=== PATIENT | female | born 1965 | race Hispanic/Latino ===

== ENCOUNTER 2024-07-26 12:12 | Emergency (ER) | payer BC, OTHER ==
--- OUTSIDE RECORDS SUMMARY | 2024-07-26 12:16 | XMS REPORT | Continuity of Care Document ---
Author Name Unknown Address [address] [place] [address] [facility] Address [address] [place] [address] Care Team Providers Care [place] Name Role Phone GC_CPC_WalkInSchedul Attending Clinician Unavail able GC_CPCN_Walk-In Attending Clinician Unavailable Franky Gutierrez Attending Clinician [phone] [facility]_WalkInSchedul Admitting Clinician Unavail able GC_CPCN_Walk-In Admitting Clinician Unavailable Payers Payer Name Policy Type Policy Number Effective Date Expirati on Date Source [facility]MERLY [facility] [id number] 2015 00:00:00 Problems Condition Name Condition Details Condition Category Status Onset Date Resolution Date Last Treatment Date Treating Clinician Comments Source Urine finding Urine Finding Problem Active 3-29 00:00: 00 [facility] Gastroesop hageal reflux disease without esophagiti s Gastroesop hageal Reflux Disease without Esophagiti s Problem Active 6-17 00:00: 00 [facility] Type 2 diabetes mellitus Type 2 Diabetes Mellitus Problem Active 2020-03 0- 00:00: 00 [facility] Hyperlipid emia Hyperlipid emia Problem Active 2020-03 0- 00:00: 00 [facility] Essential hypertensi on Essential Hypertensi on Problem Active 2020-03 0- 00:00: 00 [facility] Social History Smoking Status Start Date Stop Date Source Never Smoker [facility] Medications Ordered Medication Name Filled Medication Name Start Date Stop Date Current Medication? Ordering Clinician Indication Dosage Frequency Signature (SIG) Comments Components Source amlodipine 5 mg tablet Take 1 tablet every day by oral route. amlodipine 5 mg tablet Take 1 tablet every day by oral route. No 1 Q1D amlodipine 5 mg tablet Take 1 tablet every day by oral route. [facility] atorvastati n 20 mg tablet Take 1 tablet every day by oral route at dinner. atorvastati n 20 mg tablet Take 1 tablet every day by oral route at dinner. No 1 Q1D atorvastat in 20 mg tablet Take 1 tablet every day by oral route at dinner. [facility] candesartan 32 mg tablet Take 1 tablet every day by oral route. candesartan 32 mg tablet Take 1 tablet every day by oral route. No 1 Q1D candesarta n 32 mg tablet Take 1 tablet every day by oral route. [facility] omeprazole 40 mg capsule,del ayed release 1 cap po 30 min before breakfast omeprazole 40 mg capsule,del ayed release 1 cap po 30 min before breakfast No omeprazole 40 mg capsule,de layed release 1 cap po 30 min before breakfast [facility] Synjardy XR 5 mg-1,000 mg tablet, extended release Take 1 tablet twice a day by oral route. Synjardy XR 5 mg-1,000 mg tablet, extended release Take 1 tablet twice a day by oral route. No 1 BID Synjardy XR 5 mg-1,000 mg tablet, extended release Take 1 tablet twice a day by oral route. [facility] Immunizations Ordered Immunization Name Filled Immunization Name Date Status Comments Source COVID-19, mRNA, LNP-S, PF, 30 mcg/0.3 mL dose ([employer]) COVID-19, mRNA, LNP-S, PF, 30 mcg/0.3 mL dose ([employer]) Unknown Completed [facility] influenza, seasonal, injectable, preservative free influenza, seasonal, injectable, preservative free Unknown Completed [facility] Vital Signs Vital Name Observation Time Observation Value Comments S ource BMI (Body Mass Index) 2024-06-24 00:00:00 34.9 kg/m2 [facility] BP Systolic 2024-06-24 00:00:00 122 mm[Hg] [facility] Height 2024-06-24 00:00:00 63 [in_i] [facility] BP Diastolic 2024-06-24 00:00:00 85 mm[Hg] [facility] Body Weight 2024-06-24 00:00:00 3152 [oz_av] [facility] BMI (Body Mass Index) 2024-06-06 00:00:00 35.8 kg/m2 [facility] BP Systolic 2024-06-06 00:00:00 138 mm[Hg] [facility] BP Diastolic 2024-06-06 00:00:00 92 mm[Hg] [facility] Body Weight 2024-06-06 00:00:00 3232 [oz_av] [facility] Height 2024-06-06 00:00:00 63 [in_i] [facility] Height 2024-04-18 00:00:00 63 [in_i] [facility] Body Weight 2024-04-18 00:00:00 3376 [oz_av] [facility] BP Systolic 2024-04-18 00:00:00 136 mm[Hg] [facility] BMI (Body Mass Index) 2024-04-18 00:00:00 37.4 kg/m2 [facility] BP Diastolic 2024-04-18 00:00:00 96 mm[Hg] [facility] BMI (Body Mass Index) 2023-10-12 00:00:00 37.9 kg/m2 [facility] Body Weight 2023-10-12 00:00:00 3427.2 [oz_av] [facility] BP Diastolic 2023-10-12 00:00:00 106 mm[Hg] [facility] BP Systolic 2023-10-12 00:00:00 155 mm[Hg] [facility] Height 2023-10-12 00:00:00 63 [in_i] [facility] BP Diastolic 2022-04-06 00:00:00 90 mm[Hg] [facility] Height 2022-04-06 00:00:00 63 [in_i] [facility] BMI (Body Mass Index) 2022-04-06 00:00:00 36.1 kg/m2 [facility] BP Systolic 2022-04-06 00:00:00 152 mm[Hg] [facility] Body Weight 2022-04-06 00:00:00 3264 [oz_av] [facility] BP Diastolic 2021-09-25 00:00:00 102 mm[Hg] [facility] Height 2021-09-25 00:00:00 63 [in_i] [facility] BMI (Body Mass Index) 2021-09-25 00:00:00 36.7 kg/m2 [facility] BP Systolic 2021-09-25 00:00:00 163 mm[Hg] [facility] Body Weight 2021-09-25 00:00:00 3314 [oz_av] [facility] BP Diastolic 2021-08-25 00:00:00 103 mm[Hg] [facility] Height 2021-08-25 00:00:00 63 [in_i] [facility] BMI (Body Mass Index) 2021-08-25 00:00:00 36.2 kg/m2 [facility] BP Systolic 2021-08-25 00:00:00 154 mm[Hg] [facility] Body Weight 2021-08-25 00:00:00 3272 [oz_av] [facility] Procedures Procedure Date / Time Performed Performing Clinicia n Source MAMMO, screening, digital, bilateral 2022-04-06 00:00:00 [facility] Delivery 1995-10-17 00:00:00 [facility] Cholecystectomy (Gallbladder) [facility] Encounters Start Date/Time End Date/Time Encounter Type Admission Type Attending [facility] Care Facility Care Department Encounter ID Source 2024-06-24 00:00:00 2024-06-24 00:00:00 Franky Gutierrez, LEATHER ROLLER: [id number] [address] , Ph. [facility]ly [facility] GC_CPC_Need leroy Office [id number] [facility] 2024-06-06 00:00:00 2024-06-06 00:00:00 MEGAN SpanglerP: [id number] [address] , Ph. [facility] GC_CPC_Need leroy Office [id number] [facility] 2024-04-18 00:00:00 2024-04-18 00:00:00 Franky Gutierrez LEATHER ROLLER: [id number] [address] , Ph. [facility]ly [facility] GC_CPC_Need leroy Office [id number] [facility] 2023-10-12 00:00:00 2023-10-12 00:00:00 Franky Gutierrez, LEATHER ROLLER: [id number] [address] , Ph. [facility] - GC_CPC_Need leroy Office [id number] [facility] 2023-01-10 00:00:00 2023-01-10 00:00:00 Outpatient GC_CPC_Walk InSchedul [facility] PRIV [id number] [facility] 2022-12-22 00:00:00 2022-12-22 00:00:00 Outpatient GC[facility]PC_Walk InSchedul [facility] PRIV [id number] [facility] 2022-11-24 00:00:00 2022-11-24 00:00:00 Outpatient GC_CPC_Walk InSchedul [facility] PRIV [id number] [facility] 2022-10-25 00:00:00 2022-10-25 00:00:00 Outpatient GC_CPC_Walk InSchedul [facility] PRIV [id number] [facility] 2022-04-10 00:00:00 2022-04-10 00:00:00 Outpatient GC_CPC_Walk InSchedul [facility] PRIV [id number] [facility] 2022-04-06 00:00:00 2022-04-06 00:00:00 Outpatient GC_CPC_Walk InSchedul [facility] [id number] [facility] 2022-04-06 00:00:00 2022-04-06 00:00:00 Franky Gutierrez, LEATHER ROLLER: [id number] [address] , Ph. [facility] - GC_CPC_Need leroy Office [id number] [facility] 2021-09-25 05:33:00 2021-09-25 05:33:00 Outpatient GC_CPCN_Wal k-In [facility] [id number] [facility] 2021-09-25 00:00:00 2021-09-25 00:00:00 Franky Brenda, LEATHER ROLLER: [id number] [address] , Ph. [facility] - [facility]* [id number] [facility] 2021-09-25 00:00:00 2021-09-25 00:00:[address] [facility] [id number] 2021-08-25 02:09:00 2021-08-25 02:09:00 Outpatient GC_CPCN_Wal k-In [facility] [id number] [facility] 2021-08-25 00:00:00 2021-08-25 00:00:00 Franky Brenda, LEATHER ROLLER: [id number] [address] , Ph. [facility] - [facility] Office* [id number] [facility] 2021-08-25 00:00:00 2021-08-25 00:00:[address] [facility] [id number] Results Test Description Test Time Test Comments Results Result Co mments Source [facility] - Serum or [id number] 00:00:00* Test Item Value Reference Range Interpretation Comme nts Cholesterol [Mass/volume] in Serum or Plasma (test code = 2093-3) 196 mg/dL <200 Cholesterol in HDL [Mass/volume] in Serum or Plasma (test code = 2085-9) 43 mg/dL See_Comment L [Automated [employer]park] The system which generated this result transmitted reference range: > or = 50. The reference range was not used to interpret this result as normal/abnormal. Triglyceride [Mass/volume] in Serum or Plasma (test code = 2571-8) 165 mg/dL <150 H Cholesterol in LDL [Mass/volume] in Serum or Plasma by calculation (test code = 56327-7) 125 mg/dL (calc) H Cholesterol.total/Cho lesterol in HDL [Mass Ratio] in Serum or Plasma (test code = 9830-1) 4.6 (calc) <5.0 Cholesterol non HDL [Mass/volume] in Serum or Plasma (test code = 07828-2) 153 mg/dL (calc) <130 H [facility] 2000 panel - Serum or [id number] 00:00:00* Test Item Value Reference Range Interpretation Comme nts Glucose [Mass/volume] in Serum or Plasma (test code = 2345-7) 87 mg/dL 65-99 Urea nitrogen [Mass/volume] in Serum or Plasma (test code = 3094-0) 15 mg/dL 7-25 Creatinine [Mass/volume] in Serum or Plasma (test code = 2160-0) 0.51 mg/dL 0.50-1.05 Glomerular filtration rate/1.73 sq M.predicted among non-blacks [Volume Rate/Area] in Serum, Plasma or Blood by Creatinine-based formula (CKD-EPI) (test code = 43907-3) 109 mL/min/1.73m2 See_Comment [Automated message] The system which generated this result transmitted reference range: > or = 60. The reference range was not used to interpret this result as normal/abnormal. Glomerular filtration rate/1.73 sq M.predicted among blacks [Volume Rate/Area] in Serum, Plasma or Blood by Creatinine-based formula (CKD-EPI) (test code = 10887-9) 126 mL/min/1.73m2 See_Comment [Automated message] The system which generated this result transmitted reference range: > or = 60. The reference range was not used to interpret this result as normal/abnormal. Urea nitrogen/Creatinine [Mass Ratio] in Serum or Plasma (test code = 3097-3) not applicable 6-22 Sodium [Moles/volume] in Serum or Plasma (test code = 2951-2) 141 mmol/L 135-146 Potassium [Moles/volume] in Serum or Plasma (test code = 2823-3) 4.4 mmol/L 3.5-5.3 Chloride [Moles/volume] in Serum or Plasma (test code = 2075-0) 103 mmol/L 98-110 Carbon dioxide, total [Moles/volume] in Serum or Plasma (test code = 2027-9) 28 mmol/L 20-32 Calcium [Mass/volume] in Serum or Plasma (test code = 88750-1) 9.5 mg/dL 8.6-10.4 Protein [Mass/volume] in Serum or Plasma (test code = 2885-2) 7.4 g/dL 6.1-8.1 Albumin [Mass/volume] in Serum or Plasma (test code = 1751-7) 4.2 g/dL 3.6-5.1 Globulin [Mass/volume] in Serum by calculation (test code = 64786-2) 3.2 g/dL (calc) 1.9-3.7 Albumin/Globulin [Mass Ratio] in Serum or Plasma (test code = 1759-0) 1.3 (calc) 1.0-2.5 Bilirubin.total [Mass/volume] in Serum or Plasma (test code = 1975-2) 0.6 mg/dL 0.2-1.2 Alkaline phosphatase [Enzymatic activity/volume] in Serum or Plasma (test code = 6768-6) 80 U/L 37-153 Aspartate aminotransferase [Enzymatic activity/volume] in Serum or Plasma (test code = 1920-8) 19 U/L 10-35 Alanine aminotransferase [Enzymatic activity/volume] in Serum or Plasma (test code = 1742-6) 29 U/L 6-29 [facility]Mass Ratio] in [id number] 00:00:00* Test Item Value Reference Range Interpretation Comme nts Creatinine [Mass/volume] in Urine (test code = 2161-8) 76 mg/dL 20-275 Microalbumin [Mass/volume] i n Urine (test code = 53365-9) 0.5 mg/dL see note: Albumin/Creatinine [Mass ratio] in Urine (test code = 9318-7) 7 mcg/mg creat <30 [facility] - [id number] 00:00:00* Test Item Value Reference Range Interpretation Comme nts Color of Urine (test code = 5778-6) yellow yellow Appearance of Urine (test code = 5767-9) clear clear Specific gravity of Urine by Test strip (test code = 5811-5) 1.033 1.001-1.035 pH of Urine by Test strip (test code = 5803-2) 6.5 5.0-8.0 Glucose [Presence] in Urine by Test strip (test code = 46639-8) 2+ negative A Bilirubin.total [Presence] in Urine by Test strip (test code = 5770-3) negative negative Ketones [Presence] in Urine by Test strip (test code = 2514-8) negative negative Hemoglobin [Presence] in Urine by Test strip (test code = 5794-3) negative negative Protein [Presence] in Urine by Test strip (test code = 48153-3) negative negative Nitrite [Presence] in Urine by Test strip (test code = 5802-4) negative negative Leukocyte esterase [Presence] in Urine by Test strip (test code = 5799-2) negative negative Leukocytes [#/area] in Urine sediment by Microscopy high power field (test code = 5821-4) none seen See_Comment [Automated [employer] ge] The system which generated this result transmitted reference range: < or = 5. The reference range was not used to interpret this result as normal/abnormal. Erythrocytes [#/area] in Urine sediment by Microscopy high power field (test code = 48574-7) none seen See_Comment [Automated [employer] ge] The system which generated this result transmitted reference range: < or = 2. The reference range was not used to interpret this result as normal/abnormal. Epithelial cells.squamous [#/area] in Urine sediment by Microscopy high power field (test code = 68287-4) 0-5 See_Comment [Automated [employer] ge] The system which generated this result transmitted reference range: < or = 5. The reference range was not used to interpret this result as normal/abnormal. Bacteria [#/area] in Urine sediment by Microscopy high power field (test code = 5769-5) few none seen A Hyaline casts [#/area] in Urine sediment by Microscopy low power field (test code = 5796-8) none seen none seen [facility] W Auto Differential panel - [id number] 00:00:00* Test Item Value Reference Range Interpretation Comme nts Leukocytes [#/volume] in Blood by Automated count (test code = 6690-2) 7.4 thousand/uL 3.8-10.8 Erythrocytes [#/volume] in Blood by Automated count (test code = 789-8) 5.14 million/uL 3.80-5.10 H Hemoglobin [Mass/volume] in Blood (test code = 718-7) 14.5 g/dL 11.7-15.5 Hematocrit [Volume Fraction] of Blood by Automated count (test code = 4544-3) 44.5 % 35.0-45.0 Erythrocyte mean corpuscular volume [Entitic volume] by Automated count (test code = 787-2) 86.6 fL 80.0-100.0 Erythrocyte mean corpuscular hemoglobin [Entitic mass] by Automated count (test code = 785-6) 28.2 pg 27.0-33.0 Erythrocyte mean corpuscular hemoglobin concentration [Mass/volume] by Automated count (test code = 786-4) 32.6 g/dL 32.0-36.0 Erythrocyte distribution width [Ratio] by Automated count (test code = 788-0) 13.6 % 11.0-15.0 Platelets [#/volume] in Bloo d by Automated count (test code = 777-3) 348 thousand/uL 140-400 Platelet mean volume [Entiti c volume] in Blood by Shekhar-Mee (test code = 776-5) 10.2 fL 7.5-12.5 Neutrophils [#/volume] in Blood by Automated count (test code = 751-8) 4425 cells/uL 3518-0290 Lymphocytes [#/volume] in Blood by Automated count (test code = 731-0) 2213 cells/uL 850-3900 Monocytes [#/volume] in Bloo d by Automated count (test code = 742-7) 555 cells/uL 200-950 Eosinophils [#/volume] in Blood by Automated count (test code = 711-2) 178 cells/uL 15-500 Basophils [#/volume] in Bloo d by Automated count (test code = 704-7) 30 cells/uL 0-200 Neutrophils/100 leukocytes i n Blood by Automated count (test code = 770-8) 59.8 % Lymphocytes/100 leukocytes i n Blood by Automated count (test code = 736-9) 29.9 % Monocytes/100 leukocytes in Blood by Automated count (test code = 5905-5) 7.5 % Eosinophils/100 leukocytes i n Blood by Automated count (test code = 713-8) 2.4 % Basophils/100 leukocytes in Blood by Automated count (test code = 706-2) 0.4 % [facility]emoglobin.total in [id number] 00:00:00* Test Item Value Reference Range Interpretation Comme nts Hemoglobin A1c/Hemoglobin.total in Blood (test code = 4548-4) 6.1 % of total HGB <5.7 H [facility]
--- NOTE | 2024-07-26 13:42 | RAD REPORT ---
EXAM: Hand Right 3 View HISTORY: pain to index finger;Pain COMPARISON: None FINDINGS: Bones: No acute fracture identified. Alignment:No significant malalignment. Degenerative changes:None significant. Other: n/a IMPRESSION: No acute osseous abnormality involving the imaged hand.
--- NOTE | 2024-07-26 13:58 | EDPHYS ---
Physician Documentation [facility] Name: Sepideh Alcaraz Age: 59 yrs Sex: Female : 1965 Arrival Date: 07/26/2024 Time: 12:12 Bed 9 Private MD: ED Physician James Dickerson HPI: 07/26 13:53 This 59 yrs old Female presents to ER via Ambulatory with complaints of Finger sp3 Injury. 13:53 59-year-old female presents with right index finger pain after fall 1 week ago and sp3 repeat fall today. Patient denies any break to the skin. No other trauma reported. ROS otherwise negative.. Historical: - Allergies: 12:52 No Known Allergies; cm10 - PMHx: 12:52 Diabetes mellitus; cm10 - Immunization history:: Adult Immunizations up to date. - Infectious Disease History:: Denies. - Social history:: Smoking status: Patient denies any tobacco usage or history of. ROS: 13:55 Constitutional: Negative for fever, chills, and weight loss, Eyes: Negative for injury, sp3 pain, redness, and discharge, ENT: Negative for injury, pain, and discharge, Neck: Negative for injury, pain, and swelling, Cardiovascular: Negative for chest pain, palpitations, and edema, Respiratory: Negative for shortness of breath, cough, wheezing, and pleuritic chest pain, Abdomen/GI: Negative for abdominal pain, nausea, vomiting, diarrhea, and constipation, Back: Negative for injury and pain, Skin: Negative for injury, rash, and discoloration, Neuro: Negative for headache, weakness, numbness, tingling, and seizure, Psych: Negative for depression, anxiety, suicide ideation, homicidal ideation, and hallucinations, Allergy/Immunology: Negative for hives, rash, and allergies, 13:55 All other systems are negative, Exam: 13:56 Constitutional: This is a well developed, well nourished patient who is awake, alert, sp3 and in no acute distress. Head/Face: Normocephalic, atraumatic. Skin: Warm, dry with normal turgor. Normal color with no rashes, no lesions, and no evidence of cellulitis. Neuro: Awake and alert, GCS 15, oriented to person, place, time, and situation. Cranial nerves II-XII grossly intact. Motor strength 5/5 in all extremities. Sensory grossly intact. Cerebellar exam normal. Normal gait. 13:56 Musculoskeletal/extremity: Pain on flexion extension of the base of the right index finger. No crepitus noted. Distal neurovascular exam normal with normal capillary refill. No other injury to the hand.. Vital Signs: 12:51 BP 146 / 89; Pulse 89; Resp 16; Temp 97.1; Pulse Ox 97% ; Weight 86.18 kg; Height 5 ft. cm10 4 in. ; Pain 0/10; 12:51 Body Mass Index 32.61 (86.18 kg, 162.56 cm) cm10 12:51 Pain Scale: Adult cm10 MDM: 13:04 Medical Screening Exam initiated sp3 13:56 Data reviewed: vital signs, nurses notes, radiologic studies. ED course: Finger sp3 fracture versus sprain. X-ray negative. Will place an AlumaFoam splint and follow-up with PCP.. 07/26 12:54 Order name: Hand Right 3 View XRAY; Complete Time: 13:44 cm10 07/26 13:56 Order name: Finger Splint: Right index alum foam; Complete Time: 14:04 sp3 Administered Medications: No medications were administered Disposition Summary: 07/26/24 13:57 Discharge Ordered Notes: Location: Home sp3 Condition: Stable sp3 Diagnosis - Right hand index finger sprain sp3 Followup: sp3 - With: Private Physician - When: Upon discharge from the Emergency Department - Reason: Continuance of care Discharge Instructions: - Discharge Summary Sheet sp3 - Finger Sprain, Adult sp3 Forms: - Medication Reconciliation Form sp3 - Antibiotic Education sp3 - Prescription Opioid Use sp3 - Patient Portal Instructions sp3 - Leadership Thank You Letter sp3 Prescriptions: - Diclofenac Sodium 75 mg Oral Tablet Sustained Release - take 1 tablet ORAL route 2 times per day; 30 tablet; Refills: 0, Product sp3 Selection Permitted Signatures: Dispatcher [employer] James Saldivar MD MD sp3 Jessica Peoples RN RN cm10
--- NOTE | 2024-07-26 13:58 | ER ---
Nurse's Notes [facility] Name: Sepideh Alcaraz Age: 59 yrs Sex: Female : 1965 Arrival Date: 07/26/2024 Time: 12:12 Bed 9 Private MD: Diagnosis: Right hand index finger sprain Presentation: 07/26 12:51 Chief complaint: Patient states: Bent her right index finger back last week and cm10 continues to have swelling and unable to move it. Coronavirus screen: Client denies travel out of the [place] in the last 14 days. Ebola Screen: Patient denies travel to an Ebola-affected area in the 21 days before illness onset. Initial Sepsis Screen: Does the patient meet any 2 criteria? No. Patient's initial sepsis screen is negative. Does the patient have a suspected source of infection? No. Patient's initial sepsis screen is negative. Risk Assessment: Do you want to hurt yourself or someone else? Patient reports no desire to harm self or others. Onset of symptoms was July 26, 2024. 12:51 Method Of Arrival: Ambulatory cm10 12:51 Acuity: MARC 4 cm10 Triage Assessment: 12:52 General: Appears in no apparent distress. comfortable, Behavior is calm, cooperative. cm10 Neuro: No deficits noted. Level of Consciousness is awake, alert, obeys commands, Oriented to person, place, time, situation, Appropriate for age. Respiratory: Airway is patent Respiratory effort is even, unlabored, Respiratory pattern is regular, symmetrical. 13:50 Injury Description: Bruise. ll1 Historical: - Allergies: 12:52 No Known Allergies; cm10 - PMHx: 12:52 Diabetes mellitus; cm10 - Immunization history:: Adult Immunizations up to date. - Infectious Disease History:: Denies. - Social history:: Smoking status: Patient denies any tobacco usage or history of. Screenin:15 [facility] ED Fall Risk Assessment (Adult) History of falling in the last 3 months, ll1 including since admission No falls in past 3 months (0 pts) Confusion or Disorientation No (0 pts) Intoxicated or Sedated No (0 pts) Impaired Gait No (0 pts) Mobility Assist Device Used No (0 pt) Altered Elimination No (0 pt) Score/Fall Risk Level 0 - 2 = Low Risk Maintained a safe environment, Hourly rounding (assess needs \T\ fall precautionary measures) done. Abuse screen: Denies threats or abuse. Nutritional screening: No deficits noted. Tuberculosis screening: No symptoms or risk factors identified. Assessment: 13:50 General: Appears uncomfortable, Behavior is calm, cooperative, appropriate for age. ll1 Pain: Complains of pain in right hand Quality of pain is described as aching. Musculoskeletal: Circulation, motion, and sensation intact. Capillary refill < 3 seconds, in right fingers. Reports pain in right hand. 14:15 Musculoskeletal: Circulation, motion, and sensation intact. Capillary refill < 3 ll1 seconds, in right fingers. Vital Signs: 12:51 BP 146 / 89; Pulse 89; Resp 16; Temp 97.1; Pulse Ox 97% ; Weight 86.18 kg; Height 5 ft. cm10 4 in. ; Pain 0/10; 12:51 Body Mass Index 32.61 (86.18 kg, 162.56 cm) cm10 12:51 Pain Scale: Adult cm10 ED Course: 12:20 Patient arrived in ED. al6 12:22 James Dickerson MD is Attending Physician. sp3 12:52 Triage completed. cm10 12:52 Arm band placed on right wrist. Patient placed in waiting room. cm10 13:35 Hand Right 3 View XRAY In Process Unspecified. EDMS 13:50 Patient placed in an exam room, on a stretcher. ll1 13:50 Patient has correct armband on for positive identification. Provided Education on: ER ll1 procedures and process. 14:05 Aluminum finger splint applied to Right index finger. em1 14:15 No provider procedures requiring assistance completed. Patient did not have IV access ll1 during this emergency room visit. Administered Medications: No medications were administered Medication: 13:50 VIS not applicable for this client. ll1 Outcome: 13:57 Discharge ordered by . sp3 14:15 Discharged to home ambulatory, ll1 14:15 Condition: stable 14:15 Discharge instructions given to patient, family, Instructed on discharge instructions, follow up and referral plans. medication usage, Demonstrated understanding of instructions, follow-up care, medications, splint care, Prescriptions given X 1, 14:16 Patient left the ED. ll1 Signatures: Dispatcher [employer] Kenton Beckwith em1 Luis Luna RN RN ll1 James Dickerson MD MD sp3 Jessica Peoples, FAM RN cm10 Leslye Nuñez al6
[2024-07-26 14:32] VITALS: BP 146/89; TEMP 97.1; O2SAT 97
== END 2024-07-26 14:16 | disposition home or self-care (01) ==
LOC: ER 12:12
DX: S63.610A Unspecified sprain of right index finger, initial encounter (principal)
CPT/HCPCS: 99283